=== PATIENT | female | born 1995 | race Two or more races ===

== ENCOUNTER 2025-01-01 23:45 | Emergency (ER) | payer OTHER ==
[~2025-01-01] VITALS: Ht 165.1 cm; Wt 62.1 kg
[2025-01-02] MEDS ORDERED: TUSNEL LIQUID178 ML PO (03:20)
[2025-01-02] MEDS ORDERED: MEDROLPACK PO (03:20)
[2025-01-02] MEDS ORDERED: ZITHROMAX500 MG PO (03:20)
[2025-01-02] MEDS ORDERED: IPRAT-ALBUT 0.5-3 ML IH (03:20)
[2025-01-02] MEDS ORDERED: HYDROCODONE/CHLORPHEN P-STIREX 5 ML ML PO ONE (03:30)
[2025-01-02] MEDS ORDERED: AZITHROMYCIN 500 MG TABLET PO ONE ×2 (03:30→03:33)
[2025-01-02] MEDS ORDERED: METHYLPREDNISOLONE SOD SUCC 125 MG VIAL IV ONE (03:30)
[2025-01-02] MEDS ORDERED: METHYLPREDNISOLONE SOD SUCC 125 MG VIAL ONE (03:33)
== END 2025-01-02 03:48 | disposition home or self-care (01) ==
LOC: ER 01-02 00:43
DX: J06.9 Acute upper respiratory infection, unspecified (principal); R05.9 Cough, unspecified

== ENCOUNTER 2025-06-03 22:19 | Emergency (ER) | payer OTHER ==
[~2025-06-03] VITALS: Ht 165.1 cm; Wt 63.5 kg
[~2025-06-03 22:19] MED LIST: IPRAT-ALBUT 0.5-3 ML IH; MEDROLPACK PO; TUSNEL LIQUID178 ML PO; ZITHROMAX500 MG PO
[2025-06-03] MEDS ORDERED: DEXAMETHASONE SODIUM PHOSPHATE 4 MG/ML VIAL IM STA (23:27)
[2025-06-03] MEDS ORDERED: KETOROLAC TROMETHAMINE 30 MG VIAL IM STA (23:27)
[2025-06-03] MEDS ORDERED: ORPHENADRINE CITRATE 30 MG/ML AMPUL IM STA (23:27)
[2025-06-04] MEDS ORDERED: ORPHENADRINE CITRATE 30 MG/ML AMPUL ONE (00:03)
[2025-06-04] MEDS ORDERED: DEXAMETHASONE SODIUM PHOSPHATE 4 MG/ML VIAL ONE (00:04)
[2025-06-04] MEDS ORDERED: KETOROLAC TROMETHAMINE 30 MG VIAL ONE (00:04)
[2025-06-04 01:28] LABS: BASO % 0.2 % (0.1-1.2); EOS # 0.19 (0.04-0.54); EOS % 2.1 % (0.7-7.0); LYMPH # 2.63 (1.18-3.74); LYMPH % 28.7 % (19.3-53.1); MEAN PLATELET VOLUME 11.40 fl (9.4-12.4); MONO # 0.77 (0.24-0.82); MONO % 8.4 % (4.7-12.5); NEUT # 5.53 (1.56-6.13); NEUT % 60.5 % (34.0-71.1); RED CELL DISTRIBUTION WIDTH 13.2 % (11.6-14.4)
[2025-06-04 01:56] LABS: BUN CREA RATIO 26.0 (7.0-25.0); CREATININE SERUM 0.77 mg/dL (0.55-1.02); GFR 88.63; GLUCOSE FASTING 91.0 mg/dL (65-100); OSMOLALITY SERUM 282.0 MOSM/KG (275-295)
[2025-06-04] MEDS ORDERED: METAXALONE800 MG PO (02:26)
[2025-06-04] MEDS ORDERED: MEDROLPACK PO (02:26)
[2025-06-04] MEDS ORDERED: NABUMETONE500 MG PO (02:26)
== END 2025-06-04 03:10 | disposition home or self-care (01) ==
LOC: ER 22:19
PROVIDERS: General Practice
DX: R07.89 Other chest pain (principal); M54.89 Other dorsalgia